=== PATIENT | female | born 1995 | race Caucasian/White ===

== ENCOUNTER 2018-06-05 13:21 | Emergency (ER) | payer OTHER ==
[~2018-06-05] VITALS: Ht 165.1 cm; Wt 85.7 kg
[2018-06-05 13:47] VITALS: BP 127/74; Ht 165.1 cm; Wt 85.7 kg
== END 2018-06-05 16:12 | disposition home or self-care (01) ==
LOC: ED 13:21
DX: T17.1XXA Foreign body in nostril, initial encounter (principal); X58.XXXA Exposure to other specified factors, initial encounter; Y93.89 Activity, other specified; Y92.89 Other specified places as the place of occurrence of the external cause; Y99.8 Other external cause status
CPT/HCPCS: J2001